=== PATIENT | female | born 1950 | race Caucasian/White ===

== ENCOUNTER 2020-04-14 21:54 | Inpatient (IN) | payer OTHER ==
[~2020-04-14] VITALS: Ht 167.6 cm; Wt 77.1 kg
--- NOTE | ~2020-04-14 | O ---
[facility] [place] [address] OPERATIVE REPORT Name: SAIMA DIXON Room #: 449-I ADM IN M.R.#: [id number] Admission: 04/15/20 Attend Phys: Vasile Hooper, Discharge: Date of : 46 Report #: [id number] THIS REPORT FOR: cc: Idalia Neal MD, Paula V. MD Patterson,Vasile Donaldson MD ~ CC: Vasile Neal DATE OF SERVICE: 04/15/2020 PREOPERATIVE DIAGNOSIS: Acute appendicitis. POSTOPERATIVE DIAGNOSIS: Acute appendicitis. OPERATION: Laparoscopic appendectomy. SURGEON: Vasile Hooper MD ANESTHESIA: General. ESTIMATED BLOOD LOSS: 20 mL. SPECIMEN: Appendix. DESCRIPTION OF PROCEDURE: After informed consent was obtained, the patient was brought to the operating room and placed supine. SCDs were placed and working, preoperative antibiotics were administered, general anesthesia was induced. The abdomen was prepped and draped in usual sterile fashion. A 1 cm incision was made below the umbilicus. Fascia was incised and a trocar was placed. Pneumoperitoneum was established. Right upper quadrant and left lower quadrant 5 mm trocars were placed under direct vision. The appendix was noted to be edematous and inflamed consistent with appendicitis. It was grasped and retracted anteriorly. I made a window in the mesoappendix. The mesoappendix was then ligated using the FAIZAN alston load stapler. There was good hemostasis. The base of the appendix was then stapled off with 2 fires of the FAIZAN blue load stapler. Small bleeding vessel in the mesoappendix was clipped with a clip professor of public administration. The appendix was then placed into an Endopouch and removed. The fascia was then closed with a alhfmx-ao-iddiy 0 Vicryl. Skin was closed with 4-0 Monocryl. Incisions were sealed with Dermabond. COMPLICATIONS: None. [address] [address] OPERATIVE REPORT Name: SAIMA DIXON Steve Room #: 449-I [facility] IN [facility]#: [id number] Admission: 04/15/20 Attend Phys: Vasile Hooper, Discharge: Date of : 46 Report #: [id number] DISPOSITION: The patient was taken to recovery in satisfactory condition. By: 1322 1330 Vasile Hooper MD /nt
[2020-04-14 22:01] VITALS: BP 127/66
[2020-04-14] MEDS ORDERED: AMBIEN 5 MG TABL5 M1 PO (22:06)
[2020-04-14] MEDS ORDERED: ZOCOR40 MG PO (22:06)
[2020-04-14] MEDS ORDERED: LISINOPRIL10 MG PO (22:06)
[2020-04-14 22:22] LABS: URINE BILIRUBIN NEGATIVE (Negative); URINE BLOOD NEGATIVE (Negative); URINE CLARITY CLEAR; URINE COLOR YELLOW; URINE GLUCOSE-RANDOM* NEGATIVE (Negative); URINE KETONES NEGATIVE (Negative); URINE PROTEIN (DIPSTICK) NEGATIVE (Negative); URINE UROBILINOGEN 0.2 E.U./dl (0.2-1.0)
[2020-04-14 22:23] LABS: URINE LEUKOCYTES-REFLEX 2+ (Negative); URINE NITRITE-REFLEX POSITIVE (Negative)
[2020-04-14 22:23] LABS: ABSOLUTE NEUTROPHILS 15.3 thou/uL (1.4-8.2); BASOPHILS 0.3 % (0.0-2.0); EOSINOPHILS 0.3 % (0.0-3.0); HEMATOCRIT 38.3 % (37.0-47.0); HEMOGLOBIN 13.2 gm/dL (12.0-15.0); LYMPHOCYTES 5.7 % (24.0-44.0); MCH 32.9 pg (26.0-34.0); MCHC 34.4 g/dL (28.0-37.0); MCV 95.6 fL (80.0-100.0); MONOCYTES 2.6 % (1.0-8.0); PLATELET COUNT 240 thou/uL (150-400); POLYS 91.1 % (36.0-66.0); RBC 4.01 mil/uL (4.20-5.00); RDW 12.8 % (10.5-14.5); WBC 16.8 thou/uL (4.0-11.0)
[2020-04-14 22:29] LABS: BACTERIA-REFLEX >30 Many /HPF (None Seen); CASTS None Seen /LPF (None Seen); CRYSTALS None Seen /LPF (None Seen); SQUAMOUS 0-3 Few /LPF (0-3); URINE RBC None Seen /HPF (0-2)
[2020-04-14 22:37] LABS: CALCIUM 9.8 mg/dL (8.5-10.1); CREATININE 1.4 mg/dL (0.6-1.0); POTASSIUM 4.5 mmol/L (3.5-5.1)
[2020-04-14 22:43] LABS: ALBUMIN 4.3 g/dL (3.4-5.0); TOTAL BILIRUBIN 0.6 mg/dL (0.2-1.0); TOTAL PROTEIN 7.7 g/dL (6.4-8.2)
[2020-04-15] VITALS (11 sets, daily range): BP systolic 113–140; BP diastolic 42–69
--- NOTE | 2020-04-15 15:12 | NUR ---
ASSUMED PT CARE UPON TRANSFER THIS AM. PT VITAL SIGNS STABLE, A&OX4. PT REPORTED PAIN AT A 4. UPON ADMISSION, PT WAS SENT TO SURGERY. AFTER SURGERY, PT VITAL SIGNS WERE TAKEN HERE. PT STABLE, COMPLAINS OF PAIN, GIVEN MEDS. ON ROOM AIR. NO SKIN ISSUES. STERI STRIPS IN PLACE FROM SURGERY. TOLERATING ICE CHIPS AND WATER WELL. FLUIDS INFUSING, IV PATENT.
--- NOTE | 2020-04-16 02:44 | NUR ---
ASSUEMD CARE OF PT AT 1900HRS. PT AOX4 AND LETS NEEDS BE KNOWN. FALL PRECAUTION IN PLACE. PT IS POST OP DAY 0. 3X LAP SITES ARE INTACT. PT REPROTED SOME PAIN AND WAS TREATED WITH PRN PAIN MEDS. PT DENIED NAUSEA OR SOA. PT AMBULATED TO THE TOILET WITHOUT DIFFICULTY. PT WAS ABLE TO GET COMFORTABLE AND SLEEP PART OF THE SHIFT. VSS AND NO S/S OF ACUTE DISTRESS. WILL CONTINUE TO MONITOR.
[2020-04-16 07:28] VITALS: BP 135/69
[2020-04-16] MEDS ORDERED: NORCO 10-325 T1 EACH PO (08:07)
[2020-04-16 09:41] VITALS: BP 135/69
--- NOTE | 2020-04-16 11:24 | NUR ---
Received awake on bed. Due medications given as prescribed. On room air. Vital signs stable. On MS, not on telemetry; no complains and signs of chest pain, crushing sensation and heaviness. On regular diet- tolerating well; no nausea, no vomiting and no abdominal pain noted. Continent of bowel and bladder, able to go to the toilet independently. With SL at R AC and R hand- intact and flushing well. With 3 abdominal lap sites- dressing C/D/I- no bleeding and drainage noted. No complains of pain made during asessment. Pt seen and examined by Dr Hooper this morning, discharge orders made. Complained of nausea after eating breakfast, Dr Hooper informed- orders for anti emetic obtained- given as prescribed- complete relief noted afterwards. Discharge instructions, follow up schedule and post op care given and instructed; printed prescription given to patient by physician- copy for chart made; discharge forms signed. IV discontinued. Patient fetched by her . Discharged out of the unit via wheelchair with her personal belongings. Patient discharged.
--- NOTE | 2020-04-17 18:06 | PATH ---
[facility] [address] [place] [address] PATHOLOGY RPT PROCEDURE Name: CHELSEA MUNOZ Room #: 449-I [facility] IN .R.#: [id number] Admission: 04/15/20 Date of : 46 Discharge: 04/16/20 Report #: [id number] Path Case #: [id number] [facility] Accession Number: [id number] . 01 Material submitted: . appendix - APPENDICITIS . 01 Clinical history: . ACUTE APPENDICITIS . 02 Diagnosis: Appendix, appendectomy: - Marked acute appendicitis along with acute serositis. - Fibrous obliteration of the tip. (IUV:pit 04/17/2020) QTP 04/17/2020 1502 Local . 02 Electronically signed: . Genesis Trevizo MD, Pathologist NPI- [id number] . 01 Gross description: . The specimen is received in formalin, labeled "Chelsea Munoz, appendix". Received is a vermiform appendix measuring 6.1 cm in length by up to 1.1 cm in diameter with a moderate amount of attached mesoappendix. The serosal surface is pink-soto and smooth in appearance with a slight amount of overlying exudate. The surgical margin is closed with a line of wilbur. The wilbur are removed and the new margin is inked black. Sectioning reveals a pinpoint to patent lumen. The specimen is submitted representatively in cassettes A1 and A2, with the proximal margin and bisected tip submitted in cassette A1. (CAA; 04/16/2020) QAC/QAC 04/16/2020 1240 Local . 02 Pathologist provided ICD-10: K35.80, K65.8 . 02 CPT . 278932 Specimen Comment: A courtesy copy of this report has been sent to [phone], [phone] Specimen Comment: [phone] Specimen Comment: Report sent to / DR PEREZ Performed at: [address] [facility] [id number] MD Aaron Gonsalez MD Phone: [phone] [address] [address] PATHOLOGY RPT PROCEDURE Name: ZACKCHELSEA Room #: 449-I DIS IN M.R.#: [id number] Admission: 04/15/20 Date of : 46 Discharge: 04/16/20 Report #: [id number] Path Case #: [id number] Performed at: 02 [facility] [address] [facility], [place], [place] [id number] MD Genesis Trevizo MD Phone: [phone]
== END 2020-04-16 11:45 | disposition home or self-care (01) | DRG 342 ==
LOC: ER 21:54 → EROBS 04-15 01:56 → 4W 04-15 09:33
PROVIDERS: Emergency Medicine; ADMIT Surgery; ATTEND Surgery
PROC: 0DTJ4ZZ Resection of Appendix, Percutaneous Endoscopic Approach (ICD-10-PCS; principal; 2020-04-15)
DX: K35.80 Unspecified acute appendicitis (principal); N39.0 Urinary tract infection, site not specified; Z20.828 Contact with and (suspected) exposure to other viral communicable diseases; I10 Essential (primary) hypertension; E78.00 Pure hypercholesterolemia, unspecified; G47.00 Insomnia, unspecified; Z87.891 Personal history of nicotine dependence; Z79.899 Other long term (current) drug therapy
CPT/HCPCS: 10040; 50010; 50101; 50411; 50555; 50739; 50740; 51489; 52265; 52266; 53307; 53312; 53314; 55245; 56462; 56525; 56526; 62110; 62900; 70005

== ENCOUNTER 2021-01-10 19:25 | Emergency (ER) | payer OTHER, MEDICARE ==
[~2021-01-10] VITALS: Ht 167.6 cm; Wt 81.7 kg
[~2021-01-10 19:25] MED LIST: AMBIEN 5 MG TABL5 M1 PO; LISINOPRIL10 MG PO; NORCO 10-325 T1 EACH PO; ZOCOR40 MG PO
[2021-01-10 20:13] LABS: ABSOLUTE NEUTROPHILS 8.3 thou/uL (1.4-8.2); BASOPHILS 0.6 % (0.0-2.0); EOSINOPHILS 0.1 % (0.0-3.0); HEMATOCRIT 39.5 % (37.0-47.0); HEMOGLOBIN 13.6 gm/dL (12.0-15.0); LYMPHOCYTES 8.6 % (24.0-44.0); MCH 32.6 pg (26.0-34.0); MCHC 34.5 g/dL (28.0-37.0); MCV 94.4 fL (80.0-100.0); MONOCYTES 3.4 % (1.0-8.0); PLATELET COUNT 203 thou/uL (150-400); POLYS 87.3 % (36.0-66.0); RBC 4.19 mil/uL (4.20-5.00); RDW 12.8 % (10.5-14.5); WBC 9.5 thou/uL (4.0-11.0)
[2021-01-10 20:23] LABS: CALCIUM 9.6 mg/dL (8.5-10.1); CREATININE 1.4 mg/dL (0.6-1.0)
[2021-01-10 20:28] LABS: TOTAL BILIRUBIN 0.6 mg/dL (0.2-1.0); TOTAL PROTEIN 7.4 g/dL (6.4-8.2)
[2021-01-10] MEDS ORDERED: ZOFRAN ODT4 MG PO (21:56)
[2021-01-10 22:23] VITALS: BP 126/60
== END 2021-01-10 22:24 | disposition home or self-care (01) ==
LOC: ER 19:25
PROVIDERS: Physician Assistant
DX: T42.8X5A Adverse effect of antiparkinsonism drugs and other central muscle-tone depressants, initial encounter (principal); R11.2 Nausea with vomiting, unspecified; I10 Essential (primary) hypertension; E78.00 Pure hypercholesterolemia, unspecified; F17.210 Nicotine dependence, cigarettes, uncomplicated; Z79.899 Other long term (current) drug therapy; Y92.89 Other specified places as the place of occurrence of the external cause